=== PATIENT | female | born 1950 | race Caucasian/White ===

== ENCOUNTER → 2016-10-14 | Outpatient (CLI) | payer MEDICARE, OTHER ==
[~2016-10-14] MED LIST: AMBIEN5 MG PO; ANTIOXIDANT FO1 EACH PO; ARTIFICIAL TEAR15 M1 OPHTH; ASPIRIN (CHILDR81 MG PO; CALCIUM-MAGNES1 EAC5 PO; CLARITIN10 MG PO; FISH OIL 1,2001 EACH PO; HAIR, SKIN & N1 EACH PO; LEXAPRO20 MG PO; LOPRESSOR25 MG PO; MELATONIN10 M3 PO; MELATONIN5 M2 PO; MOBIC7.5 MG PO; OSTEO BI-FLEX1 EAC1 PO; PREMARIN VAG30 GM TOP; PRESERVISION A1 EACH PO; PROTONIX40 MG PO; TYLENOL EXTRA500 MG PO; VITAMIN D-32000 UNI1 PO; VITAMIN D35000 UNI1 PO
== END | disposition disaster alternative care site (69) ==
LOC: GBCOE 14:15
DX: Z13.820 Encounter for screening for osteoporosis (principal); M85.88 Other specified disorders of bone density and structure, other site